=== PATIENT | female | born 1985 | race Asian ===

== ENCOUNTER 2018-06-29 06:34 | Inpatient (IN) | payer OTHER ==
[2018-06-29] VITALS (20 sets, daily range): BP systolic 98–121; BP diastolic 55–78; PULSE 65–82; TEMP 98.1–99.2
[~2018-06-29] VITALS: Ht 160 cm; Wt 54.5 kg
--- NOTE | 2018-06-29 08:06 | NUR ---
0645 PATIENT HERE FOR LABOR. ASSESSMENT DONE. EFM ON FHT 116 BABY VERY ACTIVE. SVE 100/0. DR PHAM CALLED AND UPDATED. ORDERS GIVEN TO ADMIT FOR LABOR AT THIS TIME. IV STARTED IN LEFT FOREARM LR HUNG. CONSENTS SIGNED AT THIS TIME.
--- NOTE | 2018-06-29 08:21 | NUR ---
0710 PATIENT SITS UP ON EDGE OF BED FOR EPIDURAL PLACEMENT. L RUTH HARTMANN AT BEDSIDE. PATIENT TOLERATES PROCEDUR WELL. SEE Derek MIRANDA CRNA NOTES FOR QUESTIONS.
[2018-06-29 08:54] LABS: BASO # 0.1 (0.0-0.2); BASO % 0.7 % (0.0-2.0); EOS # 0.3 (0.0-0.7); GRAN # 5.4 (1.4-6.5); GRAN % 62.9 % (42.2-75.2); HEMATOCRIT 35.1 % (37.0-47.0); HEMOGLOBIN 11.7 g/dl (12.5-16.0); LYMPH # 2.1 (1.2-3.4); LYMPH % 24.8 % (20.0-51.0); MEAN CELL VOLUME 94 fl (80.0-100.0); MEAN CORPUSCULAR HEMOGLOBIN 31 pg (27.0-31.0); MEAN CORPUSCULAR HGB CONC 33 g/dl (33.0-37.0); MEAN PLATELET VOLUME 11.1 fl (7.4-10.4); MONO # 0.6 (0.1-0.6); MONO % 7.3 % (1.7-9.3); PLATELET COUNT 112 K/mm3 (130-400); RED BLOOD COUNT 3.74 M/mm3 (4.10-5.30); REDCELL DISTRIBUTION WIDTH-CV 14.3 % (11.5-14.5)
--- NOTE | 2018-06-29 09:50 | NUR ---
09 PATIENT COMPLETE FEELING PRESSURE. SVE COMPLETE. DR PHAM AT BEDSIDE FOR DELIVERY. PATIENT PUSHES WITH CONTRACTION AND DELIVERS BABY BOY VIA BY DR PHAM. REPAIR DONE BY DR PHAM. PLACENTA DELIVERED AT 09. PITOCIN STARTED AT 333 PER PROTOCOL. PATIENT DENIES NEEDS
[2018-06-30 07:45] VITALS: BP 91/47; PULSE 69; TEMP 98.1
--- NOTE | 2018-06-30 08:52 | NUR ---
Initial visit attempt; Family resting, Polisher [employer] Buffer left card of congratulations and information regarding the availability of Spiritual Care at our hospital.
[2018-06-30] MEDS ORDERED: MOTRIN 800800 MG/TAB PO (08:57)
== END 2018-06-30 17:31 | disposition home or self-care (01) | DRG 807 ==
LOC: LDRO 06:34 → OB 06:45 → LDR 06:45 → OB 11:00
PROVIDERS: ADMIT Obstetrics & Gynecology
PROC: 10E0XZZ Delivery of Products of Conception, External Approach (ICD-10-PCS; principal; 2018-06-29)
PROC: 0W8NXZZ Division of Female Perineum, External Approach (ICD-10-PCS; 2018-06-29)
DX: O69.81X0 Labor and delivery complicated by cord around neck, without compression, not applicable or unspecified (principal); Z37.0 Single live birth; Z3A.41 41 weeks gestation of pregnancy
CPT/HCPCS: J2590; J7120

== ENCOUNTER 2021-07-30 12:45 | Emergency (ER) | payer SELFPAY ==
[~2021-07-30] VITALS: Ht 160 cm; Wt 45.5 kg
[~2021-07-30 12:45] MED LIST: MOTRIN 800800 MG/TAB PO
[2021-07-30 12:47] VITALS: TEMP 98.4
[2021-07-30 13:29] LABS: BASO % 0.4 % (0.0-2.0); EOS % 0.1 % (0.0-4.0); GRAN # 8.6 K/mm3 (1.4-6.5); GRAN % 86.5 % (42.2-75.2); LYMPH # 0.7 K/mm3 (1.2-3.4); LYMPH % 6.9 % (20.0-51.0); MEAN CELL VOLUME 93 fl (80.0-100.0); MEAN CORPUSCULAR HGB CONC 32 g/dl (33.0-37.0); MEAN PLATELET VOLUME 9.8 fl (7.4-10.4); MONO # 0.5 K/mm3 (0.1-0.6); MONO % 5.4 % (1.7-9.3); PLATELET COUNT 142 K/mm3 (130-400); RED BLOOD COUNT 3.23 M/mm3 (4.10-5.30)
[2021-07-30 13:30] LABS: HEMATOCRIT 29.9 % (37.0-47.0); HEMOGLOBIN 9.6 g/dl (12.5-16.0); MEAN CORPUSCULAR HEMOGLOBIN 30 pg (27-31)
[2021-07-30 13:46] LABS: ALBUMIN 3.5 gm/dL (3.5-5.0); BILIRUBIN,TOTAL 0.7 mg/dL (0.2-1.2); CALCIUM 7.6 mg/dL (8.4-10.2); CREATININE, serum 0.83 mg/dL (0.57-1.11); POTASSIUM 3.5 mmol/L (3.5-4.5); TOTAL PROTEIN 6.2 gm/dL (6.2-8.1)
[2021-07-30 14:00] LABS: COLLECTION METHOD CLEAN CATCH
[2021-07-30 14:10] LABS: MUCOUS Present (NOT PRESENT); PH 5 (5-8); URINE APPEARANCE Hazy (CLEAR/HAZY); URINE BACTERIA None Seen /hpf (NONE SEEN); URINE BILIRUBIN Negative (NEGATIVE); URINE BLOOD Negative (NEGATIVE); URINE COLOR Yellow (YELLOW); URINE GLUCOSE Negative (NEGATIVE); URINE KETONE 1+ (NEGATIVE); URINE LEUKOCYTE ESTERASE Negative (NEGATIVE); URINE NITRATE Negative (NEGATIVE); URINE PROTEIN(semi-quant) 1+ (NEGATIVE); URINE RBC 0-2 /hpf (0-2)
[2021-07-30 15:05] VITALS: BP 104/61; PULSE 80
== END 2021-07-30 15:10 | disposition home or self-care (01) ==
LOC: COL.ER 12:45
PROVIDERS: Emergency Medicine
DX: D64.9 Anemia, unspecified (principal); E86.0 Dehydration; Z20.822 Contact with and (suspected) exposure to COVID-19; Z32.02 Encounter for pregnancy test, result negative
CPT/HCPCS: J2405; J7030